=== PATIENT | female | born 1995 | race Caucasian/White ===

== ENCOUNTER 2020-12-01 20:19 | Emergency (ER) | payer MEDICAID, SELFPAY ==
[2020-12-01 20:19] VITALS: BP 151/94; PULSE 126; RESP 25; TEMP 36.4; O2SAT 100; BMI 40.5
--- NOTE | 2020-12-01 20:25 | EDS_ITS ---
HPI History of Present Illness Chief Complaint: Allergic Reaction Detail of Chief Complaint: Upper lip swelling and tongue swelling that started about 10 minutes ago Informant: patient Narrative Narrative: Patient was at [facility] when she developed upper lip swelling and tongue swelling 10 minutes ago. She is having a harder time speaking because of the tongue swelling. Patient has history of hereditary angioedema and brought her C1 esterase inhibitor with her. Patient has been intubated in the past for her angioedema. Patient has history of of Crohn's disease and hidradenitis suppurativa. She denies recent illness. Patient presented with paperwork from her physician indicating that she is to have Berinert IV for rescue in the event of severe swelling episode. Prior similar symptoms: Yes [facility] Medical History (Updated 12/01/20 @ 21:[address] Iggy Gimenez, ) Angio-edema Home Medications C1 esterase inhibitor [Berinert] 1 unit IV X1 PRN 12/01/20 [History Last Taken Unknown] [id number] [] 1 tab PO DAILY 12/01/20 [History Last Taken Unknown] Allergy/AdvReac Type Severity Reaction Status Date / Time adalimumab [From Humira] Allergy Angioedema Verified 12/01/20 20:23 infliximab [From Remicade] Allergy Angioedema Verified 12/01/20 20:23 sulfamethoxazole Allergy Hives Verified 12/01/20 20:23 [From Bactrim] trimethoprim [From Bactrim] Allergy Hives Verified 12/01/20 20:23 ibuprofen [From Motrin] AdvReac Other Verified 12/01/20 20:23 Social History Smoking Status: Never smoker ROS [facility] ED Constitutional Constitutional ED: Reports systems reviewed and no addt'l complaints, except as documented; Denies body ache(s), change in weight or chills Eyes Eyes: Denies acute decrease in peripheral vision, change in vision, double vision or loss of vision ENT ENT ED: Reports none and other Details: Tongue swelling and upper lip swelling ; Denies ear pain, lip swelling, loss taste/smell, neck pain, otalgia or sore throat Cardiovascular Cardiovascular: Reports none; Denies abdominal pain, chest pain with activity, leg edema, lightheadedness, palpitations, rapid heart rate or syncope Respiratory/Chest Respiratory/Chest: Reports none; Denies change in mental status, dry cough, dyspnea, hemoptysis, shortness of breath at rest or shortness of breath with exertion Gastrointestinal Gastrointestinal: Reports none; Denies abdominal pain, change in stool character, diarrhea, hematemesis, hematochezia, melena, rectal bleeding or vomiting Genitourinary Genitourinary ED: Reports none; Denies abdominal discomfort, anuria, dysuria, genital pain or polyuria Musculoskeletal Musculoskeletal: Reports none; Denies arthralgias, back pain, difficulty walking, extremity pain, muscle weakness or myalgias Integumentary Reports none; Denies abscess or rash Neurologic Neurologic: Reports none; Denies abnormal gait, confusion, focal weakness, frequent falls, headache(s), loss of vision, numbness, paresthesias, radicular pain, vertigo or weakness Psychiatric Psychiatric: Reports systems reviewed and no addt'l complaints, except as documented and none; Denies behavioral changes, confusion, difficulty concentrating, hallucinations, suicidal ideation, tactile hallucinations or visual hallucinations Endocrine Endocrinology: Denies none, cold intolerance, excessive sweating, fatigue or heat intolerance Hematologic/Lymphatic Hematologic/Lymphatic: Reports none; Denies anemia, easy bleeding or easy bruising Allergic/Immunologic Allergic/Immunologic ED: Denies as per HPI, none, lip swelling, mouth swelling, throat swelling, tongue swelling or hives EXAM Physical Exam Const Vital Signs: 12/01/20 20:19 Temperature 97.5 F L Temperature Source Temporal Pulse Rate 126 H Respiratory Rate 25 H Blood Pressure 151/94 H Blood Pressure Mean 113 Pulse Ox 100 Oxygen Delivery Method Room Air Positive well nourished and well developed General Appearance ED: well developed and NAD HEENT Reports TM's clear and moist mucous membranes HEENT Narrative: Patient has noted angioedema of the upper lip. The tongue is slightly edematous as well. No oropharynx edema noted. normocephalic and atraumatic; Negative for trauma or tenderness Tympanic Membrane ED: Yes TM's clear Eyes PERRL and EOMs intact bilaterally General Eye ED: Negative for pale conjunctiva or scleral icterus Neck no lymphadenopathy, supple and no JVD General: Negative for tenderness Chest Wall inspection of chest normal and palpation of chest normal Chest: Negative for tenderness Resp normal respiratory effort and clear to auscultation bilaterally Effort and Inspection: Negative for respiratory distress or pain with movement Auscultation: Negative for rhonchi, wheezes or diminished lung sounds Cardio regular rate, regular rhythm, S1 normal heart sound, S2 normal heart sound and no murmurs Peripheral Pulses: pulses 2+ throughout GI normal to inspection, nondistended, normoactive bowel sounds, soft to palpation, non-tender, non-distended and no masses Back/Spine no CVA tenderness and no thoracic nor lumbar tenderness Extremity normal to inspection General Extremety ED: Negative for edema General Extremity: Negative for edema Neuro oriented x3, CN's II-XII intact bilaterally, no sensory deficits noted and gait normal Sensorium / Orientation: awake, alert, oriented to person, oriented to place and oriented to time Motor Exam: strength 5/5 throughout and strength abnormal Psych mental status grossly normal Skin no rashes or lesions noted and no wounds MDM MDM MDM Narrative Medical decision making narrative: IV line was established and patient was given 3 vials of Berinert as this is the dose the patient states that she normally gets when she has these episodes. There have been weeks where she has had 3-4 episodes in 1 week but these episodes happen randomly. After treatment with her Berinert almost immediately her symptoms resolved. The angioedema of the lip and tongue resolved. Patient was observed in the department for an hour and had no further symptoms. Patient to follow-up with her physicians as needed. Discharge Plan Triage Chief Complaint: Allergic Reaction ED Provider: Iggy Gimenez Dx/Rx/DC Orders Clinical Impression: Angioedema, hereditary Instructions: ED Angioedema Prescriptions: No Action 1 mg Tablet 1 tab PO DAILY RF: 0 Berinert 500 unit (10 mL) Recon Soln 1 unit IV X1 PRN (Reason: Angioedema) RF: 0 Primary Care Provider: Nawaf Najera Referrals: Nawaf Najera MD [Primary Care Provider] - As Needed Disposition Disposition: Home, Self Care
[2020-12-01] MEDS: C1 ESTERASE INHIBITOR 500 UNIT 1500 UNIT IV (20:36)
[2020-12-01 21:16] VITALS: BP 113/75; PULSE 103; RESP 20; O2SAT 100
== END 2020-12-01 21:20 | disposition home or self-care (01) ==
PROVIDERS: Emergency Provider Emergency Medicine; PCP Family Medicine
DX: D84.1 Defects in the complement system (principal); R22.0 Localized swelling, mass and lump, head; K50.90 Crohn's disease, unspecified, without complications; Z79.899 Other long term (current) drug therapy
CPT/HCPCS: 96374; 99282; A4216

== ENCOUNTER 2021-01-03 07:46 | Outpatient (RCR) | payer MEDICAID, SELFPAY ==
[2021-01-03 08:11] VITALS: BP 157/97; PULSE 86; TEMP 36.1; BMI 40.5
--- NOTE | 2021-01-03 13:22 | PCM.WC.HP ---
History of Present Illness Date of Service: 01/03/21 Chief Complaint: Nonhealing abdominal ulcers History of Wound: Ms. Jackson is a 25 yo who presents to the wound center due to nonhealing abdominal ulcers. Status post section about 9 months ago, following which, developed an area of swelling around the surgical area which subsequently opened up. Had tried dressing it at home, visiting the wound center and seen here physicians/surgeons and measures so far have not benefited. She reports significant pain and tenderness around the area. Had a CT with IV contrast done yesterday, results still pending. No purulent drainage. History of Crohn's disease on [employer]. Also history of hidradenitis and hereditary angioedema. At this time, she denies chills, fever or feeling of unwell. [facility] Medical History (Updated 01/03/21 @ 13:[address] Amber Lobo MD) Angio-edema Chronic skin ulcer with fat layer exposed Crohn's disease Skin ulcer of abdomen with fat layer exposed Home Medications C1 esterase inhibitor [Berinert] 1 unit IV X1 PRN 12/01/20 [History Last Taken Unknown] [id number] [] 1 tab PO DAILY 12/01/20 [History Last Taken Unknown] Allergy/AdvReac Type Severity Reaction Status Date / Time adalimumab [From Humira] Allergy Angioedema Verified 12/01/20 20:23 infliximab [From Remicade] Allergy Angioedema Verified 12/01/20 20:23 sulfamethoxazole Allergy Hives Verified 12/01/20 20:23 [From Bactrim] trimethoprim [From Bactrim] Allergy Hives Verified 12/01/20 20:23 ibuprofen [From Motrin] AdvReac Other Verified 12/01/20 20:23 Social History Smoking Status: Never smoker ROS Constitutional Constitutional: Denies fatigue, fever(s), frequent falls, headache(s), increased appetite or malaise Eyes Eyes: Denies acute decrease in peripheral vision, change in eye color, change in vision, decreased night vision, diplopia or discharge from eye(s) ENT HEENT: Denies dysphagia, ear discharge, ear pain, epistaxis or facial pain Cardiovascular Cardiovascular: Denies abdominal bloating, abdominal edema, bluish discoloration of hand/feet, chest pain, chest pain at rest, chest pain with activity or claudication Respiratory/Chest Respiratory/Chest: Denies change in mental status, difficulty clearing secretions, dry cough, dusky skin, dyspnea or excessive phlegm production Gastrointestinal Gastrointestinal: Denies anorexia, chewing difficulty, coffee ground emesis, diarrhea, dry heaves or dyspepsia Genitourinary Genitourinary: Denies burning urination, contractions, difficulty urinating, dribbling, dysuria, flank pain, genital lesions or genital pain Musculoskeletal Musculoskeletal: Denies joint stiffness, joint swelling, limited range of motion, muscle cramps, muscle spasms or muscle weakness Integumentary Integumentary: Denies erythema, furuncle, hirsutism, jaundice, lesions or nail changes Neurologic Neurologic: Denies abnormal hearing, abnormal movements, burning sensations, confusion, convulsions, disequilibrium or dizziness Psychiatric Psychiatric: Denies anxiety, auditory hallucinations, change in appetite, change in libido, cognitive impairment, confusion, depression or difficulty concentrating Endocrine Endocrinology: Denies excessive sweating, fatigue, flushing, heat intolerance, increase in ring/shoe/hat size or palpitations Hematologic/Lymphatic Hematologic/Lymphatic: Denies easy bleeding, easy bruising or lymphadenopathy Allergic/Immunologic Allergic/Immunologic: Denies tongue swelling, hives, urticaria, eczemia or wheezing Vital Signs Vital Signs Vital Signs: 01/03/21 08:11 Temperature 97.0 F L Temperature Source Temporal Pulse Rate 86 Blood Pressure 157/97 H Blood Pressure Mean 117 Blood Pressure Source Monitor Blood Pressure Position Semi-Fowlers Blood Pressure Location Right Arm Weight Body Mass Index (BMI) 40.5 Physical Exam Const alert, oriented x3 and no apparent distress General Appearance: cooperative, comfortable and well kempt HEENT normocephalic and head/scalp atraumatic Eyes EOMs intact bilaterally General Eye: normal appearance of both eyes Neck full ROM General: normal visual inspection Thyroid: thyroid normal Resp normal respiratory effort Effort and Inspection: able to speak in complete sentences GI Palpation: soft and tender suprapubic Extremity normal to inspection and full ROM Skin Wounds: wounds noted Neuro oriented x3, CN's II-XII intact bilaterally, moves all extremities and no focal motor deficits Psych mental status grossly normal Appearance: grossly normal Activity / Motor Behavior: appropriate eye contact Speech: normal speech Debridement Note Debridement Note Post-Debridement Measurements and Additional Note: Post-Debridement Measurements/Treatment WC - Nurse 1 - General Ulcer Assessment Start: 01/03/21 07:52 Freq: Status: Active Protocol: [email or web address] Activity Type Activity Date Activity User E-Sign Co-Sign Detail Recorded Client Recorded Date Recorded By Document 01/03/21 08:11 KR [id number] 01/03/21 08:21 KR 01/03/21 08:11 - Today's Visit Information Type of service Initial Visit Arrival Mode Ambulatory Patient Identification Verified (Name & Yes ) Height and Weight Body Mass Index (BMI) 40.5 BMI Classification Obese Vital Signs Temperature (97.8 F-99.1 F) 97.0 F L Temperature Source Temporal Pulse Rate (60-100) 86 Pulse Location Monitor Blood Pressure (90/60-120/80) 157/97 H Blood Pressure Mean 117 Source Monitor Position Semi-Fowlers Blood Pressure Location Right Arm History Since Last Visit- (Skip if this is Patient's initial visit) Have you changed medications since your No last visit? Any new allergies or adverse reactions No Had a fall/change in ADL's that may No increase risk of falls Signs or symptoms of abuse and/or No neglect since last visit Have you been in the hospital since your No last visit? Has dressing in place as prescribed Yes Has compression in place as prescribed N/A Has offloadiing in place as prescribed N/A Experienced any changes in pain level or No management Left Footwear Regular Shoe Right Footwear Regular Shoe Pain Scale: 0-10 Numeric Is Patient Pain Free? Yes - Nurse 1 - General Ulcer Measurement Start: 01/03/21 07:52 Freq: Status: Active Protocol: Activity Type Activity Date Activity User E-Sign Co-Sign Detail Recorded Client Recorded Date Recorded By Document 01/03/21 08:11 KR [id number] 01/03/21 08:21 KR 01/03/21 08:11 Wound Center Nurse 1 #2 Inferior abdomen -Current Size (cm) - Length 0.2 -Current Size (cm) - Width 1 -Current Size (cm) - Depth 0.1 -Total Square Cm 0.2 -Exudate Amt Small -Exudate Type Serosanguineous -Wound Margin Distinct, Outline Attached -Granulation Amt Medium (34-66%) -Granulation Quality Red -Necrosis Amt Small (1-33%) -Necrotic Tissue Type Adherent Slough -Texture (Annalise-wound Skin Appearance) Assessed, Scarring -Moisture (Annalise-wound Skin Appearance) No Abnormality, Assessed -Temperature (Annalise-wound Skin No Abnormality Appearance) (Pt Warm) -Tenderness on Palpation (Annalise-wound No Skin Appearance) -Ulcer Cleansing Rinsed/ Irrigated with Saline -Foul Odor after Cleansing No -Anesthetic Used 5% Lidocaine Gel Lower Abdomen Cluster -Current Size (cm) - Length 0.5 -Current Size (cm) - Width 1 -Current Size (cm) - Depth 0.2 -Total Square Cm 0.5 -Exudate Amt Small -Exudate Type Serosanguineous -Wound Margin Distinct, Outline Attached -Granulation Amt Medium (34-66%) -Granulation Quality Red -Necrosis Amt Small (1-33%) -Necrotic Tissue Type Adherent Slough -Texture (Annalise-wound Skin Appearance) Assessed, Scarring -Moisture (Annalise-wound Skin Appearance) No Abnormality, Assessed -Color (Annalise-wound Skin Appearance) No Abnormality, Assessed -Temperature (Annalise-wound Skin No Abnormality Appearance) (Pt Warm) -Tenderness on Palpation (Annalise-wound No Skin Appearance) -Ulcer Cleansing Rinsed/ Irrigated with Saline -Foul Odor after Cleansing No -Anesthetic Used 5% Lidocaine Gel WC - Nurse 2 - General Ulcer CM Notes Start: 01/03/21 07:52 Freq: Status: Active Protocol: Activity Type Activity Date Activity User E-Sign Co-Sign Detail Recorded Client Recorded Date Recorded By Document 01/03/21 08:39 MW [id number] 01/03/21 08:50 MW 01/03/21 08:39 Wound Center Nurse 2 #2 Inferior abdomen -Time 08:41 -Correct Patient Yes -Correct Side, Site, Position Yes -Correct Procedure Yes -Procedure Performed No -Wound/Ulcer Outcome Converted Lower Abdomen Cluster -Time 08:41 -Correct Patient Yes -Correct Side, Site, Position Yes -Correct Procedure Yes -Procedure Performed Yes -Type of Procedure Debridement -Clinical Debridement Subcutaneous -Tissue Removed Subcutaneous -Post Debridement (cm) - Length 3.5 -Post Debridement (cm) - Width 1.5 -Post Debridement (cm) - Depth 0.1 -Total Square (Post) (cm) 5.25 -Area of Debridement (cm) - Length 3.5 -Area of Debridement (cm) - Width 1.5 -Total Square (Area) (cm) 5.25 -Tunneling No -Undermining/Tunneling No -Circular Undermining No -Wound/Ulcer Outcome Not Healed -Ulcer Cleansing Rinsed/ Irrigated with Saline -Foul Odor after Cleansing No -Bioengineered Tissue No -Bleeding Controlled with Pressure -Offloading No -Treatment Response Procedure Tolerated Well -Debridement - Subq, 1st 20sq cm Yes Pain Scale: 0-10 Numeric Is Patient Pain Free? Yes WC - Nurse 3 - General Ulcer D/C NN Start: 01/03/21 07:52 Freq: Status: Active Protocol: Activity Type Activity Date Activity User E-Sign Co-Sign Detail Recorded Client Recorded Date Recorded By Document 01/03/21 08:59 AK [id number] 01/03/21 09:00 AK 01/03/21 08:59 Wound Care Nurse 3 Lower Abdomen Cluster -Ulcer Cleansing Rinsed/ Irrigated with Saline -Foul Odor after Cleansing No -Primary Dressing Applied Promogran -Other Dressing ABD -Primary Dressing Covered/Secured with Secured with Tape -Promogran 1 WC - Visit Discharge Discharge Condition Stable Ambulatory Status Ambulatory Transportation Private Auto Medication Reconcilliation completed & No provided to patient/care provider Clinical Summary of Care Provided No Wound debrided: Lower abdominal cluster Type of Debridement: Excisional debridement Anesthesia Used: 4% Lidocaine Solution Depth: Down to and including healthy tissue and in the subcutaneous layer Percentage of wound debrided: 100 Instrument Used: 3mm curette Tissue Removed: Slough and devitalized tissue Severity: Fat Layer Exposed Amount of bleeding with debridement: Mild Bleeding Controlled with: Pressure Patient tolerated procedure: Patient tolerated procedure well Charges/Coding Visit Charges Office Visits / Consults: 79158 OV L3 New Procedures Integumentary [id number]: [id number] [place] subq tissue 20 sq cm/< Assessment/Plan Assessment/Plan (1) Skin ulcer of abdomen with fat layer exposed: CODE(S): L98.492 - Non-pressure chronic ulcer of skin of other sites with fat layer exposed (2) Chronic skin ulcer with fat layer exposed: CODE(S): L98.492 - Non-pressure chronic ulcer of skin of other sites with fat layer exposed (3) Crohn's disease: CODE(S): K50.90 - Crohn's disease, unspecified, without complications (4) Angioedema, hereditary: CODE(S): D84.1 - Defects in the complement system PLAN: Debridement done as documented above, procedure was well-tolerated. For now, Promogran daily with ABD over top to help with drainage. Due to chronicity of ulcer, I believe she will benefit from a skin substitute. Application process started. Increase protein intake. Vitamin C and zinc also discussed/recommended. Keep area dry. Use of absorbable clothing also discussed. Avoid excessive moisture. Her questions were answered and she was advised to call with any further questions or concerns. Records have been requested from [facility]. This note was generated with [employer] dictation software. It may contain incorrect words, spelling, and punctuation that were not noted in checking the note before signing.
== END 2021-01-08 23:59 ==
LOC: WC 07:46
PROVIDERS: PCP Family Medicine; Visit Provider Internal Medicine
DX: L73.2 Hidradenitis suppurativa (principal); K50.90 Crohn's disease, unspecified, without complications; D84.1 Defects in the complement system; L98.492 Non-pressure chronic ulcer of skin of other sites with fat layer exposed
CPT/HCPCS: 11042; 99203; G0463

== ENCOUNTER → 2023-05-26 | Outpatient (CLI) | payer MEDICAID, SELFPAY ==
--- NOTE | 2023-05-26 10:10 | RAD_ITS ---
STUDY: X-RAY - RIGHT SHOULDER REASON FOR EXAM: Female, 28 years old. RIGHT SHOULDER PAIN TECHNIQUE: 3 view(s) of the shoulder. COMPARISON: None. FINDINGS: Contrast is seen within the shoulder joint. There is evidence of calcific tendinitis. RAD/Shoulder min 2 Views IMPRESSION: Calcific tendinitis. Contrast is seen within the shoulder joint for MRI examination. Electronically Signed: Nir Franco MD at 14:28 EST ,
[2023-05-26] MEDS: Lidocaine 2% (5ml sdv) 5 ML VIAL.MPF INFILT (10:20)
[2023-05-26] MEDS: Iopamidol 10 ML in Syringe 1 EACH 600 ML INTRAARTIC (10:20)
[2023-05-26] MEDS: Gadoterate Meglumine Diluted 10 ML, Iopamidol 5 ML, Lidocaine 1% (20 ml mdv) 5 ML, Epin... INTRAARTIC (10:20)
--- NOTE | 2023-05-26 10:29 | PCM.OP.PRO ---
Procedure Report Date of Procedure: 05/26/23 Assessment & Plan Assessment/Plan (1) Right shoulder pain: QUALIFIERS: Chronicity: unspecified Qualified Code(s): M25.511 - Pain in right shoulder PLAN: PROCEDURE: Arthrogram-right shoulder ORDERING PROVIDER: Dr. Banda INDICATION: Female, 28 years old. Right shoulder pain. PROVIDER: Bibiana Franz APRN-[facility] CONSENT: The procedure as well as the benefits and possible complications including bleeding and infection were explained to the patient. Informed consent was obtained. TECHNIQUE: The patient was positioned supine. The overlying skin was prepped and draped in the usual sterile fashion. Following injection of local anesthetic with 2% lidocaine and under direct fluoroscopic guidance, a 22-gauge spinal needle was placed into the right glenohumeral space. 2 cc of Isovue 300 was injected for confirmation. Following this, 10 cc of arthrogram contrast (gadoterate, iopamidol, lidocaine, and epinephrine), compounded by pharmacy, was injected. All elements of maximal sterile barrier technique followed. Patient tolerated procedure well. IMPRESSION: Successful fluoroscopic guided right shoulder arthrogram. Procedures Radiology Radiology Xray Procedures: [id number] Arthrogram Shoulder
--- NOTE | 2023-05-26 10:38 | MRI_ITS ---
STUDY: MRI ARTHROGRAM OF THE RIGHT SHOULDER REASON FOR EXAM: Female, 28 years old. Dislocation/sprain. Arthrogram. TECHNIQUE: 10 mL Clariscan contrast was injected into the right glenohumeral joint. MRI was obtained in all 3 orthogonal planes. In addition, a fat-suppressed T1-weighted sequence was performed with the patient''s arm in the abduction external rotation (ABER) position. COMPARISON: None. FINDINGS: There are low signal foci in the distal supraspinatus tendon (sagittal T1 series 7 image 7; coronal T1 series 4 image 14) and infraspinatus tendon (sagittal T1 series 7 image 6; coronal T1 series 4 image 8), compatible with calcification seen with calcific tendinitis. There is an interstitial/delaminating tear at the infraspinatus myotendinous junction with cyst formation (coronal T2 series 3 images 5-7). There is no full-thickness rotator cuff tear. Normal subscapularis tendon. Normal teres minor tendon. There is mild supraspinatus and infraspinatus muscle edema. Normal subscapularis muscle. Normal teres minor muscle. Normal glenohumeral articulation. Normal humeral head and visualized proximal humerus. Normal biceps labral complex. Normal intracapsular long biceps tendon. Normal labrum. Normal capsulo-ligamentous complex. Normal rotator interval. There is mild acromioclavicular arthrosis. There is a Type II morphology (curved), with a neutral orientation. There is no subacromial-subdeltoid bursal fluid. Normal visualized coracohumeral and coracoacromial ligaments. Normal quadrilateral space. Normal axillary space. Normal deltoid muscle. Normal trapezius muscle. MRI/Upper Ext Jt Only W/Contrast IMPRESSION: Calcific tendinitis of the distal supraspinatus and infraspinatus tendons. Interstitial/delaminating tear at the infraspinatus myotendinous junction with cyst formation. No full-thickness rotator cuff tear. Mild supraspinatus and infraspinatus muscle edema. Mild acromioclavicular arthrosis. Electronically Signed: Silas Araujo MD at 12:57 EST ,
== END | disposition home or self-care (01) ==
LOC: RAD 09:36
PROVIDERS: Referring Provider Student in an Organized Health Care Education/Training Program; Visit Provider Student in an Organized Health Care Education/Training Program
DX: S43.084A Other dislocation of right shoulder joint, initial encounter (principal); N28.9 Disorder of kidney and ureter, unspecified; S43.491A Other sprain of right shoulder joint, initial encounter; M25.511 Pain in right shoulder; X58.XXXA Exposure to other specified factors, initial encounter
CPT/HCPCS: 23350; 73030; 73222; 77002; Q9967